=== PATIENT | female | born 1955 | race Caucasian/White ===

== ENCOUNTER → 2017-03-19 | Outpatient (CLI) | payer OTHER ==
[~2017-03-19] MED LIST: ACET-749 PO; ASPI81TA28 PO; CALCTAB5 PO; CIPR-255 PO; CIPR1TAB11 PO; HYDC25 PO; MULT-506 PO; NAPR-1221 PO; PHEN-876 PO; TAMS0.4C38 PO; TRAM-10 PO
--- NOTE | 2017-03-19 17:46 | DIAGNOSTIC IMAGING REPORT ---
CT SCAN OF THE ABDOMEN AND PELVIS WITHOUT IV CONTRAST CLINICAL HISTORY: Hematuria. Right flank pain. COMPARISON STUDY: No priors. TECHNIQUE: CT scan of the abdomen and pelvis is performed from the lung bases to the proximal femora. Images are reviewed in the axial, sagittal, and coronal planes. IV contrast was not administered for this examination as per the referring clinician. Automated dose control exposure was utilized. CT DOSE: 1536.98 mGy.cm FINDINGS: Lung bases: The heart is top normal in size and there is trace pericardial effusion. The lung bases are clear. There is a moderate hiatal hernia. Liver: The unenhanced liver is normal in size, contour, and attenuation. There is no intrahepatic biliary ductal dilatation. Gallbladder: Unremarkable. Spleen: Normal in size and attenuation. Pancreas: Moderately atrophic and grossly unremarkable. Adrenal glands: Unremarkable. Kidneys: The unenhanced kidneys demonstrate mild cortical atrophy. There is a 4 mm obstructing calculus at the right vesicoureteral junction seen on image #387. There is an 8 mm obstructing calculus in the proximal right ureter seen on image #164. This is located at the level of L3. These calculi cause moderate right hydronephrosis. There are least 5 additional nonobstructing right renal calculi measuring up to 1.3 cm. There are at least 6 nonobstructing left renal calculi measuring up to 5 mm. There is no left-sided hydronephrosis. Parapelvic cysts are noted on the left. There is no evidence of contour deforming renal mass lesion. Abdominal vasculature: The abdominal aorta is normal in course and caliber noting mild atherosclerotic calcification. Bowel: The small bowel and colon are normal in course and caliber. There is moderate colonic diverticulosis without CT evidence of acute diverticulitis. The appendix is well-visualized and normal. Peritoneum: There is no intraperitoneal free air or abdominal ascites. There is a fat-containing umbilical hernia. Lymphadenopathy: None. Pelvic viscera: The bladder, uterus, and adnexa are normal as visualized. Skeletal structures: The skeletal structures are osteopenic. There is mild to moderate lumbosacral spondylosis. No lytic or blastic lesions are seen. IMPRESSION: 1. There is a 4 mm obstructing calculus at the right vesicoureteral junction and an 8 mm obstructing calculus in the proximal right ureter as detailed above. These cause moderate right hydroureteronephrosis. 2. Numerous additional bilateral nonobstructing renal calculi as detailed above. 3. Moderate colonic diverticulosis without CT evidence of acute diverticulitis. 4. Moderate hiatal hernia. 5. Additional findings as above. Electronically signed by: Ian Galindo M.D. 03/19/2017 5:45 PM Dictated Date/Time: 03/19/2017 5:36 PM
== END | disposition home or self-care (01) ==
LOC: C.CTS 17:03
PROVIDERS: ATTEND Physician Assistant
DX: R10.31 Right lower quadrant pain (principal); R31.9 Hematuria, unspecified; N13.2 Hydronephrosis with renal and ureteral calculous obstruction; K57.30 Diverticulosis of large intestine without perforation or abscess without bleeding; K44.9 Diaphragmatic hernia without obstruction or gangrene

== ENCOUNTER → 2017-03-21 | Outpatient (CLI) | payer OTHER ==
[~2017-03-21] MED LIST changes: +OPTIRAY 300 IV PRN
--- NOTE | 2017-03-21 16:24 | DIAGNOSTIC IMAGING REPORT ---
IVP W/OR W/O TOMOGRAMS CLINICAL HISTORY: N20.1 Ureteral stone latex allergy, no iodine allergy, not oswaldo flank pain COMPARISON STUDY: 03/19/2015 FINDINGS: Survey film of the abdomen shows a 3 mm calcification overlying the right soft tissue pelvic region. There are several right renal calcifications. There are several punctate calcifications left kidney. Study is performed following the administration of 100 cc nonionic contrast. There is prompt opacification of the upper left renal collecting system and ureter. There is delayed visibility of the right renal collecting system and ureter. Images at 1 hour 45 minutes demonstrating moderately distended urinary extending to the right ureterovesical junction. This is suggestive of a distal obstructing calculus.. This appears to be extrinsic to the calcification previously described, and most likely represents a 1.5 mm obstructing calculus distal right ureter IMPRESSION: Small 1.5 mm obstructing calculus right ureterovesical junction. Mild right hydroureteronephrosis. Several nonobstructing renal calcifications. Electronically signed by: Romario Combs M.D. 03/21/2017 4:23 PM Dictated Date/Time: 03/21/2017 4:19 PM
== END | disposition home or self-care (01) ==
LOC: C.RAD 13:46
PROVIDERS: ATTEND Nurse Practitioner Family
DX: N20.1 Calculus of ureter (principal); N20.0 Calculus of kidney

== ENCOUNTER 2017-03-25 07:25 | Day surgery (SDC) | payer OTHER ==
--- NOTE | 2017-03-24 10:41 | DIAGNOSTIC IMAGING REPORT ---
CHEST 2 VIEWS ROUTINE CLINICAL HISTORY: Preoperative chest. Ureteral calculus. COMPARISON STUDY: 09/26/2010 FINDINGS: The heart is normal in size. There is no failure. There is mild chronic interstitial thickening. There is no lobar consolidation. There is blunting of the posterior costophrenic angles suggesting trace effusions.[ IMPRESSION: Suspected trace pleural fluid. Otherwise no acute findings. Electronically signed by: Giovanni Brar M.D. 03/24/2017 10:40 AM Dictated Date/Time: 03/24/2017 10:32 AM
[2017-03-24 12:17] LABS: BASO % 0.4 %; BASO ABS # 0.03 K/uL (0-0.2); COMPLETE YES; EOS % 2.8 %; IG% 0.3 %; LYMPH % 19.5 %; LYMPH ABS # 1.38 K/uL (1.2-3.4); MEAN CELL VOLUME 87.8 fL (80-100); MEAN CORPUSCULAR HEMOGLOBIN 28.5 pg (25-34); MEAN CORPUSCULAR HGB CONC 32.4 g/dl (32-36); MEAN PLATELET VOLUME 9.7 fL (7.4-10.4); MONO % 7.9 %; NEUT % 69.1 %; PLATELET COUNT 253 K/uL (130-400); RED BLOOD COUNT 4.67 M/uL (4.2-5.4); WHITE BLOOD COUNT 7.06 K/uL (4.8-10.8)
[2017-03-24 12:36] LABS: BLOOD UREA NITROGEN 24 mg/dl (7-18); BUN/CREATININE RATIO 14.4 (10-20); CALCIUM 9.1 mg/dl (8.5-10.1); CARBON DIOXIDE 27 mmol/L (21-32); CHLORIDE 106 mmol/L (98-107); GLUCOSE 89 mg/dl (70-99); POTASSIUM 3.6 mmol/L (3.5-5.1); SODIUM 141 mmol/L (136-145)
[2017-03-24 18:01] VITALS: Ht 167.6 cm; Wt 95.5 kg
[~2017-03-25] VITALS: Ht 167.6 cm; Wt 95.5 kg
[~2017-03-25 07:25] MED LIST changes: -ACET-749 PO; -CALCTAB5 PO; -CIPR-255 PO; +CIPROFLOXACIN / D5W 400 MG IV SCH; -HYDC25 PO; +LACTATED RINGER'S 1000ML 1,000 ML IV SCH; -MULT-506 PO; -OPTIRAY 300 IV PRN; -PHEN-876 PO
[2017-03-25] MEDS ORDERED: FENTANYL CITRATE INJ 50 MCG/1 ML 2 ML VIAL ONE (07:40)
[2017-03-25] MEDS ORDERED: MIDAZOLAM HCL 1 MG/ML 2ML VIAL ONE (07:40)
[2017-03-25 08:02] VITALS: BP 164/74; PULSE 71; TEMP 37; O2SAT 98
[2017-03-25] MEDS ORDERED: SCOPOLAMINE 1.5 MG TDSY TD ONE (08:06)
[2017-03-25] MEDS ORDERED: EpHEDrine SULFATE INJ 50 MG/ML AMP IV PRN (08:15)
[2017-03-25] MEDS ORDERED: ATROPINE SULFATE 0.1 MG/ML 5ML SYR IV PRN (08:15)
[2017-03-25] MEDS ORDERED: FENTANYL CITRATE INJ 50 MCG/1 ML 2 ML VIAL IV PRN (08:15)
[2017-03-25 08:26] LABS: BUN/CREATININE RATIO 13.8 (10-20); POTASSIUM 3.6 mmol/L (3.5-5.1)
[2017-03-25] MEDS ORDERED: SCOPOLAMINE 1.5 MG TDSY TD SCH (08:30)
[2017-03-25] MEDS ORDERED: NURSING VERBAL MED ORDER ONE (08:30)
--- NOTE | 2017-03-25 08:41 | History & Physical Bridge Note ---
H&P Re-Evaluation Bridge Note: I have examined the patient, reviewed the History & Physical and in the interval since the performance of the History & Physical I have noted the following changes of clinical significance: No changes noted
[2017-03-25 08:51] LABS: CALCIUM 9.5 mg/dl (8.5-10.1)
[2017-03-25] MEDS ORDERED: DEXAMETHASONE SOD INJ 4 MG/ML VIAL ONE (09:31)
[2017-03-25] MEDS ORDERED: PROPOFOL IV EMULSION 10 MG/ML 20 ML VIAL IV ONE (09:31)
[2017-03-25] MEDS ORDERED: ONDANSETRON INJ 2 MG/ML 2 ML VIAL ONE (09:31)
--- NOTE | 2017-03-25 10:20 | [facility] Post Operative Brief Note ---
Immediate Operative Summary Operative Date March 25, 2017. Pre-Operative Diagnosis Nephrolithiasis, Right Renal Stone, Right Ureteral Stone Post-Operative Diagnosis Nephrolithiasis, Right Renal Stone, Right Ureteral Stone Procedure(s) Performed Cystoscopy, Right Ureteroscopy, Laser Lithotripsy; Right Ureteral Stent Placement ([id number]) Surgeon Dr. Gonzalez Sales Project Administrator Surgeon(s) none Estimated Blood Loss 0 cc Findings Distal R ureteral stone (I suspect this was the 8mm stone previously seen in the proximal ureter). Large right renal stone. All were radiolucent ( suspected uric acid) Specimens A: stone for analysis Drains [id number] stent with string Anesthesia Gen Complication(s) None Disposition Recovery Room / PACU (stable)
[2017-03-25] MEDS ORDERED: CIPR-255 PO (10:21)
[2017-03-25] MEDS ORDERED: PHEN-876 PO (10:21)
[2017-03-25] MEDS ORDERED: ACET-749 PO (10:21)
--- NOTE | 2017-03-25 10:26 | Discharge Instructions ---
Discharge Instructions Date of Service March 25, 2017. Admission Reason for Admission: Ureteral Stone N20.1 Discharge Discharge Diagnosis / Problem: stones Discharge Goals Goal(s): Decrease discomfort, Improve function, Increase independence, Improve disease control Activity Recommendations Activity Limitations: resume your previous activity Lifting Limitations: none Exercise/Sports Limitations: none May Resume Sexual Activity: when tolerated Shower/Bathe: no limitations Driving or Machine Use: resume 1 day after discharge . Instructions / Follow-Up Instructions / Follow-Up Please come to Dr. Gonzalez's office on Friday03/31/17 at 10:45AM to have your stent removed. There is a blue string attached to the stent. Please leave this taped in place until that appointment. We will use that string to remove the stent. You are being provided 3 prescriptions at discharge today. A 4th prescription is being sent directly to your pharmacy. Discharge Diet Recommended Diet: Regular Diet Procedures Procedures Performed: Cystoscopy, Right Ureteroscopy, Laser Lithotripsy; Right Ureteral Stent Placement ([id number]) Pending Studies Studies pending at discharge: no Medical Emergencies . Who to Call and When: Medical Emergencies: If at any time you feel your situation is an emergency, please call 911 immediately. . Non-Emergent Contact Non-Emergency issues call your: Urologist Call Non-Emergent contact if: you have a fever, temperature is above 101.5, your pain is not controlled, your pain is worsening . . "Provider Documentation" section prepared by Christ Hood. . VTE Core Measure Inpt VTE Proph given/why not?: Treatment not indicated [place] Drug Monitoring Program Search Results: patient reviewed within database, no issues identified
[2017-03-25 11:16] VITALS: BP 177/79; PULSE 56; TEMP 36.5; O2SAT 98
[2017-03-25 11:36] VITALS: BP 152/80; PULSE 54; O2SAT 97
--- NOTE | 2017-03-25 11:57 | Anesthesiology Progress Note ---
Anesthesia Post Op Note Date & Time March 25, 2017 at 11:57 Vital Signs Pain Intensity: 0 Vital Signs Past 12 Hours Date Time Temp Pulse Resp B/P Pulse Ox O2 Delivery O2 Flow Rate FiO2 03/25/17 11:36 54 18 152/80 97 Room Air 03/25/17 11:16 36.5 56 18 177/79 98 Room Air 03/25/17 11:05 36.4 56 18 165/88 94 Room Air 03/25/17 10:55 55 18 168/88 94 Room Air 03/25/17 10:45 60 16 161/97 100 Mask 10 03/25/17 10:35 61 16 159/96 100 Mask 10 03/25/17 10:28 36.1 64 16 158/86 100 Mask 10 03/25/17 08:02 37 71 18 164/74 98 Room Air Notes Mental Status: alert / awake / arousable, participated in evaluation Pt Amnestic to Procedure: Yes Nausea / Vomiting: adequately controlled Pain: adequately controlled Airway Patency, RR, SpO2: stable & adequate BP & HR: stable & adequate Hydration State: stable & adequate Anesthetic Complications: no major complications apparent
[2017-03-25 12:13] VITALS: BP 162/73; PULSE 66; TEMP 36.7; O2SAT 98
--- NOTE | 2017-03-25 12:55 | OPERATIVE REPORT ---
DATE OF OPERATION: 03/25/2017 PREOPERATIVE DIAGNOSIS: Right urolithiasis. POSTOPERATIVE DIAGNOSIS: Right urolithiasis. PROCEDURE PERFORMED: Cystoscopy, right ureteroscopy, laser lithotripsy and ureteral stent placement, 6-Sri [place]ankan x 24 cm. ANESTHESIA: General. ESTIMATED BLOOD LOSS: 0. URINE OUTPUT: Not recorded. SPECIMENS: Stone for chemical analysis. COMPLICATIONS: There were no complications. DESCRIPTION OF THE PROCEDURE: Joann Urbina was identified in the preoperative holding area. Appropriate informed consents were reviewed and completed and the patient was transported to the operating suite. Upon arrival, she received appropriate preoperative antibiotics in the form of ciprofloxacin. Adequate general anesthesia was achieved. She was placed in dorsal lithotomy position where she was sterilely prepped and draped in standard fashion. I gently passed a 22-S[place]ankan cystoscope with 30 degree lens. Inspection revealed no evidence of tumors or other abnormalities within the bladder. There were no free floating stones. Right ureteral orifice was noted to be mounded with a yellow appearing calculus protruding from it. I was unable to deliver this calculus. I did cannulate the UO adjacent to the stone with a sensor wire and the wire advanced to the kidney without difficulty. The stone was completely radiolucent. I then reentered the bladder with the semirigid ureteroscope alongside my wire. I guided this into the distal ureter and encountered a relatively large stone impacted at the UO. Moving it retrograde I was able to free it entirely and passed up laser fiber and lasered the stone completely. I suspect this was an 8 mm stone that was previously seen in the proximal ureter on CT scan. I lasered it entirely and irrigated all chips out of the distal ureter. I then passed my scope retrograde until I reached the level of the UPJ seeing no other stones within the ureter. Utilizing the working element of the scope I was able to pass a second wire into the kidney and withdraw the scope. I then passed a flexible scope and advanced the scope into the kidney. Full renoscopy was carried out identifying a relatively large stone within the mid kidney. This was in excess of 1 cm in size. It was also yellow appearing and radiolucent. Using the same laser fiber I fragmented this entirely into pieces deemed safe for spontaneous passage. I performed a repeat renoscopy identifying no other large retained fragments. A very careful exit ureteroscopy was conducted seeing no retained fragments in the ureter. I placed a 6 [place]an 24 cm double-J ureteral stent with a string attached to it over the existing safety wire. I decompressed the bladder and collected stone fragments and passed off the table. Case was subsequently concluded and the patient was extubated and taken to the PACU in stable condition. I attest to the content of the Intraoperative Record and any orders documented therein. Any exceptio ns are noted below.
== END 2017-03-25 12:28 | disposition home or self-care (01) ==
LOC: C.ACU 07:25
PROVIDERS: ATTEND Urology
DX: N20.9 Urinary calculus, unspecified (principal); I10 Essential (primary) hypertension; Z85.3 Personal history of malignant neoplasm of breast; Z98.51 Tubal ligation status; Z98.890 Other specified postprocedural states; Z79.82 Long term (current) use of aspirin; E66.01 Morbid (severe) obesity due to excess calories; Z68.34 Body mass index [BMI] 34.0-34.9, adult; Z80.49 Family history of malignant neoplasm of other genital organs

== ENCOUNTER → 2017-04-29 | Outpatient (CLI) | payer OTHER ==
[~2017-04-29] MED LIST changes: +ACET-749 PO; +CIPR-255 PO; -CIPROFLOXACIN / D5W 400 MG IV SCH; -LACTATED RINGER'S 1000ML 1,000 ML IV SCH; +PHEN-876 PO
== END | disposition home or self-care (01) ==
LOC: C.LAB 13:50
PROVIDERS: ATTEND Nurse Practitioner Adult Health
DX: Z00.00 Encounter for general adult medical examination without abnormal findings (principal); N20.0 Calculus of kidney

== ENCOUNTER → 2017-06-03 | Outpatient (CLI) | payer OTHER ==
[~2017-06-03] MED LIST changes: -NAPR-1221 PO; +NAPR375T3 PO
--- NOTE | 2017-06-03 13:06 | MAMMOGRAPHY REPORT ---
BILATERAL DIGITAL SCREENING MAMMOGRAM TOMOSYNTHESIS WITH CAD: 06/03/2017 CLINICAL HISTORY: Asymptomatic. Personal history of breast cancer. TECHNIQUE: Breast tomosynthesis in addition to standard 2D mammography was performed. Current study was also evaluated with a Computer Aided Detection (CAD) system. COMPARISON: Comparison is made to exams dated: 05/28/2016 mammogram, 05/22/2015 mammogram, 05/18/2014 [facility], 05/17/2013 mammogram, 05/11/2012 mammogram, and 04/23/2011 mammogra [facility]. BREAST COMPOSITION: There are scattered areas of fibroglandular density in both breasts. FINDINGS: There is expected skin irregularity and architectural distortion in the central right breas t, at the site of prior lumpectomy. There are benign appearing calcifications bilaterally. No new s uspicious mass, architectural distortion or cluster of microcalcifications is seen. IMPRESSION: ACR BI-RADS CATEGORY 1: NEGATIVE There is no mammographic evidence of malignancy. A 1 year screening mammogram is recommended. The pa tient will receive written notification of the results. Approximately 10% of breast cancers are not detected with mammography. A negative mammographic report should not delay biopsy if a clinically suggestive mass is present. Harmony Gonzalez M.D. ay/:06/03/2017 08:35:00 Central Office Supervisor: Sue KERR(Miles)(Milli)(BD), [facility] letter sent: Normal 1/2 BI-RADS Code: ACR BI-RADS Category 1: Negative
== END | disposition home or self-care (01) ==
LOC: C.MAMM 07:31
PROVIDERS: ATTEND Obstetrics & Gynecology
DX: Z12.31 Encounter for screening mammogram for malignant neoplasm of breast (principal); Z85.3 Personal history of malignant neoplasm of breast

== ENCOUNTER → 2018-06-09 | Outpatient (CLI) | payer OTHER, MEDICARE ==
[~2018-06-09] MED LIST changes: -ACET-749 PO; +NAPR-1221 PO; -NAPR375T3 PO; -PHEN-876 PO
--- NOTE | 2018-06-09 16:19 | MAMMOGRAPHY REPORT ---
BILATERAL DIGITAL SCREENING MAMMOGRAM TOMOSYNTHESIS WITH CAD: 06/09/2018 CLINICAL HISTORY: Asymptomatic. Personal history of breast cancer. TECHNIQUE: The study was acquired using full field digital technology and interpreted from soft copy. Breast tomosynthesis in addition to standard 2D mammography was performed. Current study was also ev aluated with a Computer Aided Detection (CAD) system. COMPARISON: Comparison is made to exams dated: 06/03/2017 mammogram, 05/28/2016 mammogram, 05/22/2015 ma mmogram, 05/18/2014 mammogram - [facility], 05/17/2013 mammogram, and 05/11/2012 mammogr am. BREAST COMPOSITION: There are scattered areas of fibroglandular density in both breasts. FINDINGS: There is expected architectural distortion, surgical clips and dystrophic calcification in the upper outer middle one third of the right breast, at the site of prior lumpectomy. There are oth er scattered benign rodlike and coarse calcifications bilaterally. No suspicious mass, architectural distortion or cluster of microcalcifications is seen. IMPRESSION: ACR BI-RADS CATEGORY 1: NEGATIVE There is no mammographic evidence of malignancy. A 1 year screening mammogram is recommended.( 019) The patient will receive written notification of the results. Some breast cancers are not detected with mammography. A negative mammographic report should not blayne y biopsy if a clinically suggestive mass is present. Harmony Gonzalez M.D. ay/:06/09/2018 07:47:43 Finished Cloth Examiner: RT Faina(Miles)(M), [facility] letter sent: Normal 1/2 BI-RADS Code: ACR BI-RADS Category 1: Negative
== END | disposition home or self-care (01) ==
LOC: C.MAMM 07:30
PROVIDERS: ATTEND Family Medicine
DX: Z12.31 Encounter for screening mammogram for malignant neoplasm of breast (principal); Z85.3 Personal history of malignant neoplasm of breast

== ENCOUNTER 2018-07-03 19:49 | Emergency (ER) | payer OTHER, MEDICARE ==
[~2018-07-03] VITALS: Ht 167.6 cm; Wt 91.6 kg
[2018-07-03 19:54] VITALS: TEMP 36.7; Ht 167.6 cm; Wt 91.6 kg
[2018-07-03] MEDS ORDERED: SODIUM CHLORIDE 0.9% 1000ML 1,000 ML IV STA (20:26)
[2018-07-03 20:37] LABS: BASO % 0.6 %; BASO ABS # 0.04 K/uL (0-0.2); EOS % 2.6 %; EOS ABS # 0.19 K/uL (0-0.5); HEMATOCRIT 43.9 % (37-47); HEMOGLOBIN 14.9 g/dL (12.0-16.0); IG# 0.02 K/uL (0.00-0.02); LYMPH % 21.7 %; LYMPH ABS # 1.57 K/uL (1.2-3.4); MEAN CELL VOLUME 88.3 fL (80-100); MEAN CORPUSCULAR HGB CONC 33.9 g/dl (32-36); MEAN PLATELET VOLUME 9.1 fL (7.4-10.4); MONO % 4.6 %; MONO ABS # 0.33 K/uL (0.11-0.59); NEUT % 70.2 %; PLATELET COUNT 266 K/uL (130-400); RED CELL DISTRIBUTION WIDTH CV 14.8 % (11.5-14.5); RED CELL DISTRIBUTION WIDTH SD 47.9 fL (36.4-46.3); WHITE BLOOD COUNT 7.25 K/uL (4.8-10.8)
[2018-07-03 20:53] LABS: PTT PATIENT 21.4 SECONDS (21.0-31.0)
--- NOTE | 2018-07-03 20:56 | DIAGNOSTIC IMAGING REPORT ---
CHEST ONE VIEW PORTABLE CLINICAL HISTORY: EVALUATE ALTERED MENTAL STATUS/WEAKNESS COMPARISON STUDY: Chest radiograph March 24, 2017. FINDINGS: Patient is rotated. There is mild to moderate enlargement of the cardiac silhouette. There is no evidence for overt pulmonary edema. No lobar consolidation is present. There is mild S-shaped curvature of the thoracolumbar spine. IMPRESSION: No acute cardiopulmonary findings. Electronically signed by: Christopher Jauregui M.D. 07/03/2018 8:55 PM Dictated Date/Time: 07/03/2018 8:54 PM
--- NOTE | 2018-07-03 20:58 | DIAGNOSTIC IMAGING REPORT ---
CT OF THE HEAD WITHOUT CONTRAST CLINICAL HISTORY: EVALUATE ALTERED MENTAL STATUS/WEAKNESS COMPARISON STUDY: No previous studies for comparison. CT DOSE: 537.48 mGy.cm TECHNIQUE: Helical axial images of the head were obtained without IV contrast. Automated exposure control was utilized for the study. A dose lowering technique was utilized adhering to the principles of ALARA. FINDINGS: No acute intracranial hemorrhage, midline shift or mass effect is present. Brain volume is normal. Ventricular system is normal. Basilar cisterns are patent. There are no extra-axial collections. Bustamante-white differentiation is maintained. Mild white matter hypodensity suggests small vessel disease. There are no findings to suggest acute dural sinus thrombosis or acute territorial infarct. There are no significant calvarial abnormalities. Visualized portions of the sinuses and the mastoid air cells are clear. IMPRESSION: No acute intracranial findings. Electronically signed by: Christopher Jauregui M.D. 07/03/2018 8:57 PM Dictated Date/Time: 07/03/2018 8:55 PM
[2018-07-03 21:21] LABS: ALBUMIN 4.1 gm/dl (3.4-5.0); ALKALINE PHOSPHATASE 36 U/L (45-117); ALT/SGPT 26 U/L (12-78); AST/SGOT 36 U/L (15-37); BLOOD UREA NITROGEN 24 mg/dl (7-18); CALCIUM 9.2 mg/dl (8.5-10.1); CARBON DIOXIDE 25 mmol/L (21-32); CKMB 4.8 ng/ml (0.5-3.6); CREATININE 0.94 mg/dl (0.60-1.20); GLUCOSE 102 mg/dl (70-99); SODIUM 141 mmol/L (136-145); TOTAL PROTEIN 7.8 gm/dl (6.4-8.2)
--- NOTE | 2018-07-03 21:44 | DIAGNOSTIC IMAGING REPORT ---
CAROTID ARTERY ULTRASOUND CLINICAL HISTORY: Dizziness. COMPARISON STUDY: None. TECHNIQUE: Real-time, grayscale, and color Doppler sonography of the carotid and vertebral arteries was performed. Images were viewed in the transverse and longitudinal planes. FINDINGS: There is minimal atherosclerotic plaque. Velocity measurements are listed below. COMMON CAROTID PEAK SYSTOLIC VELOCITY (CM/S): RIGHT 71 LEFT 75 ICA PEAK SYSTOLIC VELOCITY (CM/S): RIGHT 93 LEFT 103 Systolic ratios between the internal to common carotid arteries are normal. Antegrade flow is seen in the vertebral arteries. The external carotid arteries are patent. Blood pressure was not obtained in this patient due to limb restriction. IMPRESSION: No evidence of a hemodynamically significant stenosis. Electronically signed by: Christopher Jauregui M.D. 07/03/2018 9:43 PM Dictated Date/Time: 07/03/2018 9:42 PM
[2018-07-03] MEDS ORDERED: POTA1080 PO (22:19)
[2018-07-03] MEDS ORDERED: TURM1CAP4 PO (22:19)
[2018-07-03] MEDS ORDERED: MECL1TAB42 PO ×2 (23:13→23:35)
--- NOTE | 2018-07-03 23:14 | EMERGENCY ROOM VISIT NOTE ---
History Report prepared by Skye: Amanda Ritter Under the Supervision of: Dr. Thomas Cole D.O. First contact with patient: 20:20 Chief Complaint: DIZZY Stated Complaint: DIZZY,VOMITING, NAUSEA History of Present Illness The patient is a 63 year old female who presents to the Emergency Room with complaints of dizziness that has worsened over the past week. The patient states that when she has woken up in the morning this past week, she has had to sit and let the dizziness pass. She also notes that she sometimes feels unsteady. The patient reports that her symptoms have been the worst today and that her dizziness has been constant. Per caregiver, the patient took 2 doses of Meclizine today with no relief of symptoms. She currently notes that looking to the right makes her dizziness worse and she rates her pain a 8/10. The patient also complains of nausea, lightheadedness, and vomiting a few times after dinner today. She denies any headaches, fevers, arm/leg weakness. The patient reports a history of vertigo. Source of History: patient, caregiver Onset: over the past week Position: head Symptom Intensity: 8/10 Quality: other (dizziness) Timing: constant, worsening Modifying Factors (Worsening): other (looking to the right) Associated Symptoms: + nausea, + vomiting, No fevers, No headache, No weakness (arm, leg) Note: Additional symptoms: unsteadiness Review of Systems See HPI for pertinent positives & negatives. A total of 10 systems reviewed and were otherwise negative. Past Medical & Surgical Medical Problems: (1) Hypertension (2) Kidney stone (3) Vertigo Family History Cancer Social History Smoking Status: Never Smoker Marital Status: Current/Historical Medications Scheduled Naproxen (Naproxen), 375 MG PO DAILY Potassium Citrate (Alkalinizer (Potassium Citrate ER), 1,080 MG PO DAILY Turmeric (Curcuma Longa) (Turmeric), 500 MG PO DAILY Scheduled PRN Meclizine Hcl (Meclizine Hcl), 1 TAB PO TID PRN for Dizziness or Vertigo Meclizine Hcl (Meclizine Hcl), 1 TAB PO TID PRN for Dizziness or Vertigo Allergies Coded Allergies: No Known Allergies (Unverified , 03/25/17) Physical Exam Vital Signs Date Time Temp Pulse Resp B/P (MAP) Pulse Ox O2 Delivery O2 Flow Rate FiO2 07/03/18 22:15 66 18 155/85 96 Room Air 70 164/78 71 171/87 07/03/18 21:39 57 18 175/102 96 Room Air 07/03/18 19:54 36.7 69 18 159/101 96 Room Air Physical Exam VITAL SIGNS: were reviewed as above. GENERAL:Non-toxic in appearance. SKIN: Warm dry and pink. HEAD: Normocephalic and atraumatic. OROPHARYNX: Is clear and moist NECK: Supple without lymphadenopathy or meningismus. LUNGS: clear. HEART: Regular rate and rhythm. ABDOMEN: Soft and nontender. EXTREMITIES: Warm and well perfused. NEUROLOGICALLY: Awake alert and oriented without focal deficit. Cranial nerves 2 -12 are intact. There is no pronator drift. Cerebellar testing is within normal limits. There is no nystagmus. There is no facial droop. Speech is clear. Vision is grossly normal. MUSCULOSKELETAL: Good muscle tone. No evidence of trauma. Medical Decision & Procedures ER Provider Diagnostic Interpretation: Radiology results as stated below per my review and radiologist interpretation: CT OF THE HEAD WITHOUT CONTRAST CLINICAL HISTORY: EVALUATE ALTERED MENTAL STATUS/WEAKNESS COMPARISON STUDY: No previous studies for comparison. CT DOSE: 537.48 mGy.cm TECHNIQUE: Helical axial images of the head were obtained without IV contrast. Automated exposure control was utilized for the study. A dose lowering technique was utilized adhering to the principles of ALARA. FINDINGS: No acute intracranial hemorrhage, midline shift or mass effect is present. Brain volume is normal. Ventricular system is normal. Basilar cisterns are patent. There are no extra-axial collections. Bustamante-white differentiation is maintained. Mild white matter hypodensity suggests small vessel disease. There are no findings to suggest acute dural sinus thrombosis or acute territorial infarct. There are no significant calvarial abnormalities. Visualized portions of the sinuses and the mastoid air cells are clear. IMPRESSION: No acute intracranial findings. Electronically signed by: Christopher Jauregui M.D. 07/03/2018 8:57 PM Dictated Date/Time: 07/03/2018 8:55 PM CHEST ONE VIEW PORTABLE CLINICAL HISTORY: EVALUATE ALTERED MENTAL STATUS/WEAKNESS COMPARISON STUDY: Chest radiograph March 24, 2017. FINDINGS: Patient is rotated. There is mild to moderate enlargement of the cardiac silhouette. There is no evidence for overt pulmonary edema. No lobar consolidation is present. There is mild S-shaped curvature of the thoracolumbar spine. IMPRESSION: No acute cardiopulmonary findings. Electronically signed by: Christopher Jauregui M.D. 07/03/2018 8:55 PM Dictated Date/Time: 07/03/2018 8:54 PM CAROTID ARTERY ULTRASOUND CLINICAL HISTORY: Dizziness. COMPARISON STUDY: None. TECHNIQUE: Real-time, grayscale, and color Doppler sonography of the carotid and vertebral arteries was performed. Images were viewed in the transverse and longitudinal planes. FINDINGS: There is minimal atherosclerotic plaque. Velocity measurements are listed below. COMMON CAROTID PEAK SYSTOLIC VELOCITY (CM/S): RIGHT 71 LEFT 75 ICA PEAK SYSTOLIC VELOCITY (CM/S): RIGHT 93 LEFT 103 Systolic ratios between the internal to common carotid arteries are normal. Antegrade flow is seen in the vertebral arteries. The external carotid arteries are patent. Blood pressure was not obtained in this patient due to limb restriction. IMPRESSION: No evidence of a hemodynamically significant stenosis. Electronically signed by: Christopher Jauregui M.D. 07/03/2018 9:43 PM Dictated Date/Time: 07/03/2018 9:42 PM Laboratory Results 07/03/18 20:15 Red Blood Count 4.97, Mean Corpuscular Volume 88.3, Mean Corpuscular Hemoglobin 30.0, Mean Corpuscular Hemoglobin Concent 33.9, Mean Platelet Volume 9.1, Neutrophils (%) (Auto) 70.2, Lymphocytes (%) (Auto) 21.7, Monocytes (%) (Auto) 4.6, Eosinophils (%) (Auto) 2.6, Basophils (%) (Auto) 0.6, Neutrophils # (Auto) 5.10, Lymphocytes # (Auto) 1.57, Monocytes # (Auto) 0.33, Eosinophils # (Auto) 0.19, Basophils # (Auto) 0.04 07/03/18 20:15 Test 07/03/18 20:15 07/03/18 22:15 White Blood Count 7.25 K/uL (4.8-10.8) Red Blood Count 4.97 M/uL (4.2-5.4) Hemoglobin 14.9 g/dL (12.0-16.0) Hematocrit 43.9 % (37-47) Mean Corpuscular Volume 88.3 fL (80-100) Mean Corpuscular Hemoglobin 30.0 pg (25-34) Mean Corpuscular Hemoglobin Concent 33.9 g/dl (32-36) Platelet Count 266 K/uL (130-400) Mean Platelet Volume 9.1 fL (7.4-10.4) Neutrophils (%) (Auto) 70.2 % Lymphocytes (%) (Auto) 21.7 % Monocytes (%) (Auto) 4.6 % Eosinophils (%) (Auto) 2.6 % Basophils (%) (Auto) 0.6 % Neutrophils # (Auto) 5.10 K/uL (1.4-6.5) Lymphocytes # (Auto) 1.57 K/uL (1.2-3.4) Monocytes # (Auto) 0.33 K/uL (0.11-0.59) Eosinophils # (Auto) 0.19 K/uL (0-0.5) Basophils # (Auto) 0.04 K/uL (0-0.2) RDW Standard Deviation 47.9 fL (36.4-46.3) RDW Coefficient of Variation 14.8 % (11.5-14.5) Immature Granulocyte % (Auto) 0.3 % Immature Granulocyte # (Auto) 0.02 K/uL (0.00-0.02) Prothrombin Time 10.0 SECONDS (9.0-12.0) Prothromb Time International Ratio 1.0 (0.9-1.1) Activated Partial Thromboplast Time 21.4 SECONDS (21.0-31.0) Partial Thromboplastin Ratio 0.8 Anion Gap 10.0 mmol/L (3-11) Est Creatinine Clear Calc Drug Dose 68.0 ml/min Estimated GFR () 73.8 Estimated GFR (Non- 63.7 BUN/Creatinine Ratio 25.6 (10-20) Calcium Level 9.2 mg/dl (8.5-10.1) Magnesium Level 2.0 mg/dl (1.8-2.4) Total Bilirubin 0.4 mg/dl (0.2-1) Direct Bilirubin 0.1 mg/dl (0-0.2) Aspartate Amino Transf (AST/SGOT) 36 U/L (15-37) Alanine Aminotransferase (ALT/SGPT) 26 U/L (12-78) Alkaline Phosphatase 36 U/L (45-117) Total Creatine Kinase 165 U/L (26-192) Creatine Kinase MB 4.8 ng/ml (0.5-3.6) Creatine Kinase MB Ratio 2.9 (0-3.0) Troponin I < 0.015 ng/ml (0-0.045) Total Protein 7.8 gm/dl (6.4-8.2) Albumin 4.1 gm/dl (3.4-5.0) Thyroid Stimulating Hormone (TSH) 1.260 uIu/ml (0.300-4.500) Urine Color YELLOW Urine Appearance CLEAR (CLEAR) Urine pH 5.0 (4.5-7.5) Urine Specific [place] 1.020 (1.000-1.030) Urine Protein NEG (NEG) Urine Glucose (UA) NEG (NEG) Urine Ketones TRACE (NEG) Urine Occult Blood TRACE (NEG) Urine Nitrite NEG (NEG) Urine Bilirubin NEG (NEG) Urine Urobilinogen NEG (NEG) Urine Leukocyte Esterase TRACE (NEG) Urine WBC (Auto) 1-5 /hpf (0-5) Urine RBC (Auto) 0-4 /hpf (0-4) Urine Hyaline Casts (Auto) 1-5 /lpf (0-5) Urine Epithelial Cells (Auto) 10-20 /lpf (0-5) Urine Bacteria (Auto) NEG (NEG) Laboratory results as stated above per my review. Medications Administered Medications (Trade) Dose Ordered Sig/Emerald Route Start Time Stop Time Status Last Admin Dose Admin Sodium Chloride 1,000 ml @ 999 mls/hr Q1H1M STAT IV 07/03/18 20:26 07/03/18 21:26 DC 07/03/18 20:34 999 MLS/HR ECG Per My Interpretation Indication: other (dizziness) Rate (beats per minute): 60 Rhythm: normal sinus Findings: no ectopy, other (no ST elevation) ED Course 2020: Previous medical records were reviewed. The patient was evaluated in room B05. A complete history and physical examination was performed. 2025: Administered Sodium Chloride 1000 ml @ 999 mls/hr IV. 5: On reevaluation, the patient is resting. I discussed the results and findings with the patient. She verbalized agreement of the treatment plan. The patient was discharged home. Medical Decision Differential includes acute coronary syndrome, myocardial infarction, CVA, TIA, anemia, infection, pneumonia, UTI, pyelonephritis, poor nutrition, dehydration, electrolyte disturbance,hypoglycemia. This is a 63-year-old female who presents to the ED with a chief complaint of dizziness. The patient states that she has had the symptoms intermittently for the past week but her symptoms seem to be a little worse today. The patient states that she felt like she had to sit on the edge of the bed before she would get up. She denies being presyncopal or lightheaded. Today she felt like her symptoms worsen when she would turn her head to the right and sometimes the left. She denied any headaches, fevers or weakness. She did take some [id number] meclizine that did not seem to help her symptoms much. Today she reported 2 episodes of vomiting per her initial blood pressure was elevated. Her physical exam and neurological exam were unremarkable. Her EKG shows a normal sinus rhythm. CBC and complete metabolic panel were unremarkable. Her BUN is 24. Troponin was negative, TSH was normal, urine revealed trace ketones. CT scan of the brain and chest x-ray were negative for acute disease. Carotid ultrasound did not show acute abnormality. The patient was told the results of the test. She was given a prescription for meclizine. She is felt to be stable for discharge and outpatient follow-up. She was also given IV fluids. Medication Reconcilliation Current Medication List: was personally reviewed by me Blood Pressure Screening Patient's blood pressure: Elevated blood pressure Blood pressure disposition: Referred to PCP Impression Primary Impression: Dizziness Scribe Attestation The scribe's documentation has been prepared under my direction and personally reviewed by me in its entirety. I confirm that the note above accurately reflects all work, treatment, procedures, and medical decision making performed by me. Departure Information Dispostion Home / Self-Care Prescriptions Meclizine Hcl (MECLIZINE HCL) 25 Mg Tab 1 TAB PO TID Y for Dizziness or Vertigo for 10 Days, #30 TAB Prov: Thomas Cole D.O. 07/03/18 Meclizine Hcl (MECLIZINE HCL) 25 Mg Tab 1 TAB PO TID Y for Dizziness or Vertigo for 10 Days, #30 TAB Prov: Thomas Cole D.O. 07/03/18 Referrals No Doctor, Assigned (PCP) Forms HOME CARE DOCUMENTATION FORM, IMPORTANT VISIT INFORMATION Patient Instructions My [facility] Additional Instructions Your test results today did not reveal any significant abnormalities. You were mildly dehydrated. Drink plenty of fluids. Meclizine as prescribed Follow-up with your doctor for further care and evaluation in 2-4 days if symptoms persist. Return to the emergency department for worsening or new symptoms or any concerns. You have been examined and treated today on an emergency basis only. This is not a substitute for, or an effort to provide, complete comprehensive medical care. It is impossible to recognize and treat all injuries or illnesses in a single emergency department visit. It is therefore important that you follow up closely with your doctor. Call as soon as possible for an appointment.
[2018-07-03 23:25] VITALS: BP 189/99; PULSE 69; O2SAT 97
== END 2018-07-03 23:25 | disposition home or self-care (01) ==
LOC: C.EDB 19:50
DX: R42 Dizziness and giddiness (principal); R79.89 Other specified abnormal findings of blood chemistry; R11.2 Nausea with vomiting, unspecified; I10 Essential (primary) hypertension; Z79.899 Other long term (current) drug therapy